=== PATIENT | female | born 1990 | race Two or more races ===

== ENCOUNTER 2021-08-25 23:33 | Observation (INO) | payer MEDICAID ==
[~2021-08-25] VITALS: Ht 160 cm; Wt 113.4 kg
[2021-08-26] MEDS ORDERED: SODIUM CHLORIDE 0.45% 1,000 ML IV SCH ×2 (00:30→01:30)
[2021-08-26] MEDS: TERBUTALINE SULFATE 1MG/ML VIAL SUBCUT PRN ×3 (01:09→03:23)
[2021-08-26 01:50] LABS: CLARITY URINE CLEAR (CLEAR); COLOR URINE YELLOW (YELLOW); KETONES URINE 1+ (NEGATIVE); LEUKOCYTE ESTERASE URINE NEGATIVE (NEGATIVE); NITRITE URINE NEGATIVE (NEGATIVE); OCCULT BLOOD URINE NEGATIVE (NEGATIVE); PH URINE 6.5 (4.5-8.0); PROTEIN URINE NEGATIVE (NEGATIVE)
[2021-08-26] MEDS ORDERED: ACETAMINOPHEN 500MG TABLET PO NR (03:15)
== END 2021-08-26 03:50 | disposition home or self-care (01) ==
LOC: 8 EST LDRP 23:33
PROVIDERS: ADMIT Specialist; ATTEND Specialist
DX: O62.9 Abnormality of forces of labor, unspecified (principal); O26.893 Other specified pregnancy related conditions, third trimester; R10.9 Unspecified abdominal pain; O99.891 Other specified diseases and conditions complicating pregnancy; M54.9 Dorsalgia, unspecified; Z3A.34 34 weeks gestation of pregnancy
CPT/HCPCS: 59025; 76805; 76818; 81003; 87070; 96360; 96372; G0378; J3105; 96361; 99281; G0379

== ENCOUNTER 2021-09-17 22:35 | Inpatient (IN) | payer MEDICAID ==
[~2021-09-17] VITALS: Ht 160 cm; Wt 115.7 kg
[2021-09-17] MEDS ORDERED: BUTORPHANOL TARTRATE 2 MG/ML VIAL IM ONE (23:15)
[2021-09-18] MEDS ORDERED: FOLI0.4T6 PO (00:08)
[2021-09-18] MEDS ORDERED: NALOXONE HCL 0.4 MG/ML 1ML VIAL IM PRN (01:30)
[2021-09-18] MEDS ORDERED: CARBOPROST TROMETHAMINE 250 MCG/ML AMPUL IM PRN (01:30)
[2021-09-18] MEDS ORDERED: DEXT 5%/LR + PITOCIN 20UNITS/L 1,000 ML IV SCH ×2 (01:30→13:00)
[2021-09-18] MEDS ORDERED: BUTORPHANOL TARTRATE 2 MG/ML VIAL IV PRN ×2 (01:30→13:00)
[2021-09-18] MEDS ORDERED: METHYLERGONOVINE MALEATE 0.2 MG/ML IM PRN (01:30)
[2021-09-18] MEDS: LACTATED RINGERS 1,000 ML IV SCH ×2 (01:38→02:39)
[2021-09-18 01:52] LABS: BASOPHILS % 0.2 % (0.0-2.0); HEMATOCRIT. 30.3 % (36.0-48.0); HEMOGLOBIN. 9.9 g/dL (12.0-16.0); LYMPHOCYTES % 9.1 % (20.0-50.0); MEAN CORPUSCULAR HEMOGLOBIN 24.5 pg (28.0-32.0); MEAN CORPUSCULAR VOLUME 75.1 fL (81.0-99.0); MEAN PLATELET VOLUME 8.5 fl (7.4-10.4); MONOCYTES % 3.8 % (2.0-8.0); NEUTROPHILS % 86.9 % (40.0-76.0); PLATELET 331 x1000/uL (130-400); RED BLOOD CELL COUNT 4.04 mill/uL (4.2-5.4); RED CELL DISTRIBUTION WIDTH 16.7 % (11.6-14.6)
[2021-09-18] MEDS ORDERED: LIDOCAINE HCL 1% 10 MG/ML 10ML VIAL IJ SCH (02:00)
[2021-09-18] MEDS ORDERED: PENICILLIN G POTASSIUM 5 MMU in DEXT 5% WATER 100 ML IV SCH (02:00)
[2021-09-18 02:02] LABS: CHLORIDE 109 mEq/L (98-107)
[2021-09-18 02:07] LABS: INR 0.9; PARTIAL THROMBOPLASTIN TIME 25.6 sec (23.4-31.0); PROTHROMBIN TIME 10.2 sec (9.6-11.0)
[2021-09-18] MEDS ORDERED: ROPIVACAINE HCL/PF 100ML 100 ML INFIL SCH (02:45)
[2021-09-18] MEDS ORDERED: ROPIVACAINE HCL/PF EPIDURAL 200 ML EPI ONE (02:48)
[2021-09-18 04:15] LABS: CLARITY URINE CLEAR (CLEAR); COLOR URINE YELLOW (YELLOW); KETONES URINE 4+ (NEGATIVE); LEUKOCYTE ESTERASE URINE TRACE (NEGATIVE); NITRITE URINE NEGATIVE (NEGATIVE); OCCULT BLOOD URINE 2+ (NEGATIVE); PROTEIN URINE TRACE (NEGATIVE); SPECIFIC GRAVITY URINE 1.014 (1.005-1.030); UROBILINOGEN URINE 0.2 E.U./dL (0.2-1.0)
[2021-09-18 05:02] LABS: *AMPHETAMINES SCREEN URINE NEGATIVE (NEGATIVE); *BARBITURATES SCREEN URINE NEGATIVE (NEGATIVE); *BENZODIAZEPINES SCREEN URINE NEGATIVE (NEGATIVE)
[2021-09-18 05:03] LABS: *COCAINE SCREEN URINE NEGATIVE (NEGATIVE); CANNABINOID URINE SCREEN NEGATIVE (NEGATIVE); METHADONE URINE SCREEN NEGATIVE (NEGATIVE); OPIATES URINE SCREEN NEGATIVE (NEGATIVE); PHENCYCLIDINE URINE SCREEN NEGATIVE (NEGATIVE)
[2021-09-18 05:07] LABS: HEPATITIS B SURFACE ANTIGEN NEGATIVE
[2021-09-18] MEDS ORDERED: PENICILLIN G POTASSIUM 2.5 MMU in DEXTROSE 5% WATER 50 ML IV SCH (06:00)
[2021-09-18] MEDS ORDERED: PHENYLEPHRINE HCL 10 MG/ML 1ML (IV VIAL) IV ONE (08:25)
[2021-09-18] MEDS ORDERED: EPHEDRINE SULFATE 50MG/ML VIAL ONE (08:25)
[2021-09-18] MEDS ORDERED: LIDOCAINE HCL 2%/EPINEPHRINE 1:100,000 20 ML VIAL INFIL ONE (08:25)
[2021-09-18] MEDS ORDERED: CEFAZOLIN SODIUM 1000MG/VIAL ONE (10:20)
[2021-09-18] MEDS ORDERED: OXYTOCIN 10 UNITS/ML 1ML ONE (10:20)
[2021-09-18] MEDS ORDERED: SODIUM BICARBONATE 8.4% MEQ/ML 50ML VIAL IV ONE (10:21)
[2021-09-18] MEDS ORDERED: ONDANSETRON HCL 4MG/2ML INJ ONE (10:21)
[2021-09-18] MEDS ORDERED: DEXAMETHASONE 4MG/ML 1ML VIAL ONE (10:21)
[2021-09-18] MEDS ORDERED: MORPHINE SULFATE/PF 1MG/ML 10ML AMP ONE (10:24)
[2021-09-18] MEDS ORDERED: FENTANYL CITRATE/PF 50MCG/ML 2ML VIAL ONE (11:57)
[2021-09-18] MEDS ORDERED: MIDAZOLAM HCL 2 MG/2 ML VIAL ONE (11:59)
[2021-09-18] MEDS ORDERED: NALOXONE HCL 0.4 MG/ML 1ML VIAL IV PRN (12:30)
[2021-09-18] MEDS ORDERED: DIPHENHYDRAMINE 25MG CAPSULE PO PRN (13:00)
[2021-09-18] MEDS ORDERED: IBUPROFEN 400MG TABLET PO PRN (13:00)
[2021-09-18] MEDS ORDERED: RHO(D) IMMUNE GLOBULIN 300 MCG/SYR IM PRN (13:00)
[2021-09-18] MEDS ORDERED: LANOLIN OINT 7GM TUBE TOP PRN (13:00)
[2021-09-18] MEDS ORDERED: FENTANYL CITRATE/PF 50MCG/ML 2ML VIAL IV PRN (13:00)
[2021-09-18] MEDS ORDERED: MORPHINE SULFATE 2 MG/ML CPJ (NOT FOR IM USE) IV PRN (13:00)
[2021-09-18] MEDS ORDERED: ONDANSETRON HCL 4MG/2ML INJ IV PRN (13:00)
[2021-09-18] MEDS ORDERED: DIPHENHYDRAMINE 50MG/ML VIAL IM PRN (13:00)
[2021-09-18] MEDS ORDERED: ONDANSETRON HCL 4MG/2ML INJ IM PRN (13:00)
[2021-09-18] MEDS ORDERED: HYDROMORPHONE HCL/PF 2MG/ML CPJ IM PRN (13:15)
[2021-09-18 14:45] VITALS: BP 116/53
[2021-09-18 15:45] VITALS: BP 105/48
[2021-09-18 17:39] VITALS: BP 99/50
[2021-09-18 20:00] VITALS: BP 97/53
[2021-09-18] MEDS: DOCUSATE SODIUM 100MG CAPSULE PO SCH (21:58)
[2021-09-19] VITALS: BP 105/52
[2021-09-19 04:00] VITALS: BP 98/56
[2021-09-19] MEDS: IBUPROFEN 800MG TABLET PO PRN ×2 (05:25→22:13)
[2021-09-19 07:17] LABS: BASOPHILS % 0.3 % (0.0-2.0); EOSINOPHILS % 0.1 % (0.0-5.0); HEMATOCRIT. 26.5 % (36.0-48.0); HEMOGLOBIN. 8.7 g/dL (12.0-16.0); LYMPHOCYTES % 18.1 % (20.0-50.0); MEAN CORPUSCULAR HEMOGLOBIN 25.4 pg (28.0-32.0); MEAN CORPUSCULAR VOLUME 76.9 fL (81.0-99.0); MEAN PLATELET VOLUME 8.3 fl (7.4-10.4); MONOCYTES % 7.4 % (2.0-8.0); NEUTROPHILS % 74.1 % (40.0-76.0); PLATELET 249 x1000/uL (130-400); RED BLOOD CELL COUNT 3.44 mill/uL (4.2-5.4); RED CELL DISTRIBUTION WIDTH 16.7 % (11.6-14.6)
[2021-09-19 07:30] VITALS: BP 108/58
[2021-09-19] MEDS: PRENATAL VIT/FE FUMARATE/FA TABLET PO SCH (08:28)
[2021-09-19] MEDS ORDERED: HYDROCODONE/ACETAMINOPHEN 5/325MG TABLET PO PRN (09:15)
[2021-09-19] MEDS: HYDROCODONE/ACETAMINOPHEN 5/325MG TABLET PO PRN ×2 (09:42→15:14)
[2021-09-19 16:20] VITALS: BP 108/50
[2021-09-19 20:00] VITALS: BP 104/48
[2021-09-19] MEDS: DOCUSATE SODIUM 100MG CAPSULE PO SCH (22:13)
[2021-09-20] VITALS: BP 100/53
[2021-09-20] MEDS ORDERED: HYDROCODONE/ACETAMINOPHEN 5/325MG TABLET ONE (03:30)
[2021-09-20] MEDS: HYDROCODONE/ACETAMINOPHEN 5/325MG TABLET PO PRN (03:32)
[2021-09-20 04:00] VITALS: BP 118/54
[2021-09-20 07:45] VITALS: BP 99/50
[2021-09-20] MEDS: IBUPROFEN 800MG TABLET PO PRN ×2 (11:20→18:56)
[2021-09-20 16:32] VITALS: BP 114/59
[2021-09-20 20:00] VITALS: BP 117/56
[2021-09-20] MEDS: DOCUSATE SODIUM 100MG CAPSULE PO SCH (21:10)
[2021-09-21] VITALS: BP 116/60
[2021-09-21] MEDS: IBUPROFEN 800MG TABLET PO PRN ×2 (00:14→07:37)
[2021-09-21 04:01] VITALS: BP 112/63
[2021-09-21] MEDS: PRENATAL VIT/FE FUMARATE/FA TABLET PO SCH ×2 (08:39→08:46)
[2021-09-21 10:00] VITALS: BP 122/70
== END 2021-09-21 12:15 | disposition home or self-care (01) | DRG 540 ==
LOC: OBSVTOIN 22:35 → 8 EST LDRP 22:35 → 8EST 09-18 15:24
PROVIDERS: ADMIT Obstetrics & Gynecology; ATTEND Obstetrics & Gynecology
PROC: 10D00Z1 Extraction of Products of Conception, Low, Open Approach (ICD-10-PCS; principal; 2021-09-18)
DX: O69.81X0 Labor and delivery complicated by cord around neck, without compression, not applicable or unspecified (principal); D64.9 Anemia, unspecified; O99.344 Other mental disorders complicating childbirth; O99.52 Diseases of the respiratory system complicating childbirth; F31.9 Bipolar disorder, unspecified; J45.909 Unspecified asthma, uncomplicated; Z20.822 Contact with and (suspected) exposure to COVID-19; O75.89 Other specified complications of labor and delivery; O90.81 Anemia of the puerperium; Z88.2 Allergy status to sulfonamides; Z79.899 Other long term (current) drug therapy; Z88.8 Allergy status to other drugs, medicaments and biological substances; Z3A.37 37 weeks gestation of pregnancy; Z37.0 Single live birth
CPT/HCPCS: 36415; 76805; 80053; 80305; 81003; 84550; 85025; 85384; 86592; 86703; 86762; 86850; 86900; 87340; 87426; 88307; 99281; G0378; J0595; J0690; J1100; J1170; J2250; J2274; J2370; J2405; J2540; J2590; J2795; J3010; J3490; J7060; J7120; A4315